=== PATIENT | male | born 1995 | race Caucasian/White ===

== ENCOUNTER 2018-09-30 20:07 | Emergency (ER) | payer MEDICAID, OTHER ==
[~2018-09-30] VITALS: Ht 162.6 cm; Wt 55.7 kg
[2018-09-30 20:37] VITALS: Ht 162.6 cm; Wt 55.7 kg
--- NOTE | 2018-09-30 23:46 | ERD ---
ER Documentation Chief Complaint Chief Complaint groin pain, thigh pain, feels "dehyrated" x a year now HPI 23-year-old male, department, complaining of right testicular pain for 1 year. He denies any trauma, no lumps. He denies dysuria, no penile discharge, no abdominal pain. The patient seems very concerned about testicular cancer. ROS All systems reviewed and are negative except as per history of present illness. Medications Home Meds Active Scripts Ibuprofen* (Motrin*) 400 Mg Tab, 400 MG PO Q8, #20 TAB Prov:ISAAC FRANCO MD 10/01/18 Allergies Allergies: Coded Allergies: No Known Allergy (Unverified , 09/30/18) Physical Exam Vitals Vital Signs Date Temp Pulse Resp B/P (MAP) Pulse Ox O2 O2 Flow FiO2 Time Delivery Rate 09/30/18 98.7 119 20 131/79 96 20:37 (96) Physical Exam Const: No acute distress Head: Atraumatic Eyes: Normal Conjunctiva ENT: Normal External Ears, Nose and Mouth. Neck: Full range of motion. No meningismus. Resp: Clear to auscultation bilaterally Cardio: Regular rate and rhythm, no murmurs Abd: Soft, non tender, non distended. Normal bowel sounds Skin: No petechiae or rashes Back: No midline or flank tenderness Ext: No cyanosis, or edema Neur: Awake and alert Psych: Normal Mood and Affect Results 24 hrs Laboratory Tests Test 10/01/18 00:39 Urine Color YELLOW Urine Clarity CLEAR Urine pH 7.0 Urine Specific [place] 1.021 Urine Ketones NEGATIVE mg/dL Urine Nitrite NEGATIVE mg/dL Urine Bilirubin NEGATIVE mg/dL Urine Urobilinogen 2+ mg/dL Urine Leukocyte Esterase NEGATIVE Ana/ul Urine Hemoglobin NEGATIVE mg/dL Urine Glucose NEGATIVE mg/dL Urine Total Protein NEGATIVE mg/dl Urine Opiates Screen Negative Urine Barbiturates Negative Urine Amphetamines Screen Negative Urine Benzodiazepines Screen Negative Urine Cocaine Screen Negative Urine Cannabinoids Positive Procedures/MDM During the medical encounter differential diagnosis like UTI, epididymitis, inguinal hernia, testicular torsion, varicocele, testicular mass were considered, therefore and a scrotal ultrasound and a were requested, see results above. Physical examination and clinical presentation consistent most likely with right testicular pain. During the ED course the patient remained stable, no new complaints. Results and clinical impression discussed with the patient who agrees with manag ement. The patient is stable to be treated outpatient and will be discharged home with a Rx for ibuprofen, some side effects of prescribed medications (headache, rash, nausea, vomiting, diarrhea, drowsiness, habituation, bleeding, hypertension, interactions with other medications) were reviewed. The patient was instructed to follow up with the primary care provider in the next 48h. If symptoms persist, worsen or new symptoms develop, then patient should return to the ED immediately. Instructions explained and given directly by me to the patient[ in [place]] with acknowledgment and demonstrated understanding. Disclaimer: Inadvertent spelling and grammatical errors are likely due to EHR/dictation software use and do not reflect on the overall quality of patient care. Also, please note that the electronic time recorded on this note does not necessarily reflect the actual time of the patient encounter. Departure Diagnosis: Primary Impression: Multiple complaints Additional Impression: Right testicular pain Condition: Stable Additional Instructions: Thank you very much for allowing us to participate in your care. Your health and safety is our top priority at [facility]. Call your primary care doctor TOMORROW for an appointment during the next 2-4 days and bring all the information and medications prescribed. Have prescriptions filled and follow precisely the directions on the label. If the symptoms get worse and your provider is unavailable, return to the Emergency Department immediately. ISAAC FRANCO MD Sep 30, 2018 23:46
[2018-10-01] MEDS ORDERED: IBUP-1561 PO (01:31)
[2018-10-01 01:53] VITALS: BP 117/73; PULSE 77; RESP 18
== END 2018-10-01 01:55 | disposition home or self-care (01) ==
LOC: FTE 20:07
DX: N50.811 Right testicular pain (principal); R10.30 Lower abdominal pain, unspecified; M79.659 Pain in unspecified thigh
CPT/HCPCS: 76870; 80307; 81003